=== PATIENT | male | born 1980 | race Caucasian/White ===

== ENCOUNTER 2017-06-25 02:52 | Emergency (ER) | payer SELFPAY ==
[~2017-06-25] VITALS: Ht 185.4 cm; Wt 93.0 kg
[2017-06-25 02:58] VITALS: BP 159/98
== END 2017-06-25 04:00 | disposition left against medical advice (07) ==
LOC: EMS 02:54
DX: F41.9 Anxiety disorder, unspecified (principal); Z53.21 Procedure and treatment not carried out due to patient leaving prior to being seen by health care provider